=== PATIENT | female | born 1995 | race Caucasian/White ===

== ENCOUNTER 2017-02-15 15:02 | Observation (INO) ==
--- NOTE | 2017-02-15 16:20 | OB/GYN Progress Note ---
Date of Encounter: 02/15/17 Time of Encounter: 16:18 - Assessment and Plan (1) 39 weeks gestation of Current Visit: Yes Status: Acute (2) Vaginal bleeding Current Visit: Yes Status: Acute Pt with no active red bleeding at this time. only dark brown spotting when wiping at this time. Dr. Mckeon will be in to evaluate. (3) NST (non-stress test) reactive Current Visit: Yes Status: Acute Baseline 135 Subjective - Subjective Interval history: here for increased vaginal bleeding after cervical exam in office. Pt reports good movement, denies leaking of fluid. Pt states just went to restroom and had only a small amount of brown discharge on pad. Feels occasional cramping contractions, but nothing painful. Antepartum ROS: vaginal bleeding, movement normal, contractions, no loss of fluid Objective - Vital Signs Vital Signs: Intake and Output 02/15/17 02/15/17 02/15/17 07:59 15:59 23:59 Other: Weight 55.4 kg Patient Weight 02/15/17 23:59 Weight 55.4 kg - Exam FHR: auscultation normal FHR comments: Baseline 135 Auscultation: bilateral: normal Abdomen: Present: normal appearance, soft, gravid
--- NOTE | 2017-02-15 18:04 | OB/GYN Progress Note ---
Date of Encounter: 02/15/17 Time of Encounter: 17:45 - Assessment and Plan (1) First in adolescent 16 years of age or older in third trimester Current Visit: Yes Status: Acute (2) False labor after 37 completed weeks of gestation Current Visit: Yes Status: Acute Labor precautions given patient was scheduled for an induction in 1 week it has not delivered by then (3) 39 weeks gestation of Current Visit: Yes Status: Acute (4) Vaginal bleeding Current Visit: Yes Status: Acute Subjective - Subjective Interval history: Patient states feeling occasional contractions but nothing uncomfortable. She has been observed for couple hours having a brownish discharge now no active bleeding. Did have a long discussion with the patient about trying to allow her to go into labor on her own due to her inability to tolerate pelvic exams. Patient has not made any cervical change since the office and from last week. She still appears to be 3 cm. Because of her very low pain tolerance I recommendation is to let her try make some more change in her own when she is to [address] an epidural even if not really in labor so we can do pelvic exams more comfortably for her and make this more enjoyable for her. Patient is a With this would have preferred to stay in have a baby tonight but understands. Labor precautions were given to the patient. Antepartum ROS: vaginal bleeding, contractions Objective - Vital Signs Vital Signs: Intake and Output 02/15/17 02/15/17 02/15/17 07:59 15:59 23:59 Other: Weight 55.4 kg Patient Weight 02/15/17 23:59 Weight 55.4 kg - Exam FHR: category 1 FHR comments: heart tones 140s reactive contractions every 2 minutes but patient is not feeling them Auscultation: bilateral: normal Abdomen: Present: soft, gravid Uterus: Present: firm Cervical dilation: 3 Cervix effacement: 80 station: -2
== END 2017-02-15 17:36 | disposition home or self-care (01) ==
LOC: 1NENULAB
PROVIDERS: ADMIT Obstetrics & Gynecology; ATTEND Obstetrics & Gynecology

== ENCOUNTER 2017-02-22 07:59 | Inpatient (IN) ==
[2017-02-22] MEDS ORDERED: Ondansetron 4 MG/2 ML VIAL IVP PRN ×2 (08:06→13:00)
[2017-02-22] MEDS ORDERED: Famotidine 20 MG/2 ML VIAL IVP PRN (08:06)
[2017-02-22] MEDS ORDERED: Oxytocin 20 units/ LR 1000 mL 20 UNIT/1,000 ML BAG IVC SCH (08:15)
[2017-02-22 08:47] LABS: Basophils # 0.1 K/mcL (0.0-0.2); Basophils % 0.6 %; Eosinophils # 0.1 K/mcL (0.0-0.6); Eosinophils % 1.5 %; Hematocrit 33.7 % (35.3-44.9); Hemoglobin 10.6 g/dL (11.5-15.4); Immature Granulocytes % 0.7 % (0-4); Lymphocytes # 1.7 K/mcL (0.6-4.6); Mean Corpuscular HGB Conc 31.5 g/dL (31.6-35.5); Mean Corpuscular Hemoglobin 26.1 pg (28.0-33.3); Mean Platelet Volume 10.9 fL (9.4-12.4); Monocytes # 0.6 K/mcL (0.0-1.3); Monocytes % 7.8 %; Neutrophils # 5.7 K/mcL (1.6-8.9); Platelet Count 213 K/mcL (140-400); Red Blood Count 4.06 M/mcL (3.82-4.97); Red Cell Distribution Width 14.2 % (11.5-14.5); Segmented Neutrophils % 68.4 %
[2017-02-22] MEDS: Ringers Solution, Lactated 1,000 ML IVC SCH ×2 (08:58→16:35)
--- NOTE | 2017-02-22 09:00 | OB/GYN History & Physical ---
Date of Encounter: 02/22/17 Time of Encounter: 09:00 Assessment and Plan (1) 40 weeks gestation of Current visit: Yes Status: Acute Admit for induction of labor Early Epidural planned Pitocin Anticipate vaginal delivery History of Present Illness Chief complaint: Induction of Labor HPI: Ms. Crespo is a 21 year old female , 40+3, presenting to L&D for induction of labor with Dr. Mckeon. Pt reports good movement, denies loss of fluid/ bleeding/discharge. Labs: GBS- VZV pending Rubella immune Blood type: O positive Past Med Surg Social Fam HX - Past Medical History Medical history: no medical history Psychiatric history: no psych history - Past Surgical History Surgical History: no surgical history - Social History Smoking Status: Former smoker Smokeless Tobacco Status: No Alcohol use: none Drug use: marijuana - Family History Father Family Member Ethnicity: Non- Living Status: Still Living Hx Family Cardiac Disorders: Yes (HYPERTENSION) Hx Family Respiratory Disorders: No Hx Family Cancer: No Hx Family GI Disorders: No Hx Family Genitourinary Disorders: No Hx Family Endocrine Disorder: No Hx Family Musculoskeletal Disorders: No Hx Family Neuromuscular Disorders: No Hx Family Neurologic Disorders: No Hx Family HEENT Disorders: No Hx Family Autoimmune Disorders: No Hx Family Reproductive Disorders: No Hx Family Psychosocial Disorders: No Hx Family Medical Disorders: No Obstetrical History - Pregnancies : 1 Medications and Allergies Multi Tablet 1 tab PO DAILY 02/15/17 [History] Zantac 1 tab PO BID 02/15/17 [History] 3 Allergy/AdvReac Type Severity Reaction Status Date / Time Penicillins Allergy See Verified 02/22/17 08:27 Comments Review of System OB - Constitutional Constitutional ROS IM: no fatigue - Cardiovascular Cardiovascular: no chest pain - Respiratory Respiratory: no dyspnea - Gastrointestinal Gastrointestinal: no abdominal pain - Neurological Nerological: no abnormal movements Exam - Constitutional Constitutional: well developed, well nourished, no acute distress, average body habitus - HEENT HEENT: EOMI, PERRL, Normocephaly - Neck Neck exam: full ROM - Lungs Respiratory exam: CTAB - Cardiovascular Cardiovascular exam: +S1, +S2 - Abdomen Abdomen: Present: bowel sounds normal - Cervix Dilation: 4 Effacement: 80 Station: 0 Results Result Diagrams: 02/22/17 08:37 Abnormal lab results Hgb 10.6 g/dL (11.5-15.4) L 02/22/17 08:37 Hct 33.7 % (35.3-44.9) L 02/22/17 08:37 MCH 26.1 pg (28.0-33.3) L 02/22/17 08:37 MCHC 31.5 g/dL (31.6-35.5) L 02/22/17 08:37 All other labs normal. - VTE Reasons for not Prescribing Prophylaxis: Treatment not Indicated - Low risk for VTE
--- NOTE | 2017-02-22 10:30 | Anesthesia Evaluation PreOp ---
Date of Encounter: 02/22/17 Time of Encounter: 10:16 - Past History Planned Operation: JENNYFER Cardiac History: Denies any Significant Hx Pulmonary History: Denies Any Significant HX RESPIRATORY SERVICES MANAGER History: Denies Any Significant HX Other Medical History: GERD Anesthesia History: Past Anesthesia (wisdom teeth extraction) : Yes Alcohol Use: none Drug use: marijuana Medications and Allergies Multi Tablet 1 tab PO DAILY 02/15/17 [History] Zantac 1 tab PO BID 02/15/17 [History] 3 Allergy/AdvReac Type Severity Reaction Status Date / Time Penicillins Allergy See Verified 02/22/17 08:27 Comments - Meds/Allergy Pre-op Review Medications Reviewed: Yes Allergies Reviewed: Yes Beta Blockers on Current Med List: No Anesthesia Results - Labs 02/22/17 08:37 Anesthesia Exam BP 107/70 P 70 R 18 T 36.8 Height: 5'4" Weight: 55.7kg NPO (# of Hours): 4 Pain Scale: 2 Pain Scale Used: Numeric (1 - 10) - HEENT Pupil (Motor): Pupils equal Mallampati: II Teeth: Normal Oral Opening: Greater than 3 - RESPIRATORY SERVICES MANAGER LOC: Oriented RESPIRATORY SERVICES MANAGER Motor: Normal RUE, Normal LUE, Normal RLE, Normal LLE, Normal Face RESPIRATORY SERVICES MANAGER Sensory: Normal: RUE, LUE, RLE, LLE, Face - Cardiac Rhythm: Regular Murmur: None JVD: No Carotid Bruit: No - Pulmonary Breath Sounds: bilateral Clear Respiratory Effort: Symmetrical Anesthesia Assess/Plan ASA Score: 2 Modified [place] Scale for Level of Consciousness: Cooperative, oriented, and tranquil Anesthetic Plan: Regional Autologous Blood: No Monitoring Plan: Standard Monitors Recovery Plan: PACU
[2017-02-22] MEDS ORDERED: *HR* FentaNYL (PF) 100 MCG/2 ML VIAL ONE (12:19)
[2017-02-22] MEDS ORDERED: Bupivacaine-MPF 0.25% 10 ML VIAL ONE (12:20)
[2017-02-22] MEDS ORDERED: Epidural Premix (fent/bupiv) 110 ML EP ONE ×2 (12:20→19:36)
[2017-02-22] MEDS ORDERED: Bupivacaine-MPF 0.25% 10 ML VIAL EP ONE (13:00)
[2017-02-22] MEDS ORDERED: *HR* FentaNYL (PF) 100 MCG/2 ML VIAL EP ONE (13:00)
[2017-02-22] MEDS ORDERED: EPHEDrine 50 MG/ML VIAL IVP PRN (13:00)
[2017-02-22] MEDS ORDERED: Epidural Premix (fent/bupiv) 110 ML EP SCH (13:00)
--- NOTE | 2017-02-22 13:05 | Anesthesia Procedures ---
Date of Encounter: 02/22/17 Time of Encounter: 12:22 Procedures: Anesthesia - Epidural/Spinal Patient ID/Chart reviewed: Yes Patient examined: Yes OB Eval: Gestational age: 40 OB Eval: : 1 OB Eval: Hx Para: 0 OB Eval: Dilated at (cm): 4 OB Eval: Contractions: Non-stressed pattern Consent Obtained: Yes Supplemental Oxygen: None/Room Air Site Prep: Aseptic Technique, Sterile prep and drape, Povidone-Iodine 1% Patient position: upright Local Anesthetic: Lidocaine 1% Amount of Local Anesthetic used: 3 Touhy Needle Gauge: 18 Catheter Depth at Skin (cm): 5 Test Dose (1.5% Lido + Epi): Volume given (mls): 3 Test Dose Result: Negative Loading Dose: 0.25% Marcaine (mls): 10 Loading Dose: Fentanyl (mcg): 100 Loading Dose Administered: Thru Catheter Infusion Med: 0.125% Bupivacaine w/ 2 mcg/ml Fentanyl Infusion Rate (mls/hr): [address]: Tegaderm, Tape Interspace Used: L4-L5 Loss of Resistance (APOLLO): Yes Blood: No CSF: No Paresthesia: No Procedure: JENNYFER placed 1st pass without any immediate noted complications. VSS and FHT stable throughout. Vitals + FHT's: 1222 BP 126/77 P 58 R 18 1255 BP 132/69 P 62 R 16 FHT 140s
--- NOTE | 2017-02-22 13:20 | OB Labor Progress Note ---
Date of Encounter: 02/22/17 Time of Encounter: 13:15 Labor Progress Note - Subjective Subjective: Patient comfortable after epidural no longer feeling any discomfort. - Cervix Cervix: 4/90/0 AROM CLEAR - Heart Tones Heart Tones: heart tones 140s reactive - Nettleton Nettleton: Contractions every 2 minutes IUPC placed - Plan Plan: Continue current care and anticipate normal spontaneous vaginal delivery
[2017-02-22] MEDS ORDERED: Lidocaine 1% 20 ML MDV ONE (19:36)
--- NOTE | 2017-02-22 23:38 | OB/GYN Procedure Note ---
Delivery - Delivery Date: 02/22/17 Provider: Alejandro Mckeon Intrapartum events: none Delivery induction: AROM, oxytocin Delivery augmentation: rupture of membranes Delivery monitor: external FHT, external uterine, internal uterine Anesthesia: epidural Estimated Blood Loss: 200 - (s) Infant A Infant Delivery Date: 02/22/17 Delivery Time: 22:41 Presentation: vertex Position: GERMAN Route of delivery: Gender: Female Viability: Viable Pounds: 7 Ounces: 0 Weight Gram: 3.18 kg at 1 minute: 2 Shoulder Dystocia: not encountered Specimens collected: cord blood, venous cord gases, arterial cord gases Placenta: spontaneous Cord: nuchal cord, 3 umbilical vessels, nuchal reduced - Repair Episiotomy: none Laceration Description: Perineal - 2nd Degree, Vaginal (bilateral sulcus tears) - Complications Delivery complications: none Delivery comments: Patient is a 21-year-old 1 para 0 at 40-3/7 weeks who presents to labor and delivery for an induction of labor secondary to term with favorable cervix. Patient was 4 cm on admission she was started on Pitocin and epidural was placed early due to inability to tolerate pelvic exams. Patient progressed appropriately and became complete but had no desire to push did not feel anything. We had the patient labored down for couple hours and had the patient push. She pushed for 1 hour with minimal change allowed her to labor down for an additional hour and then continued to push for next her 2-1/2 hours. The head crowned up nicely and patient delivered a viable female infant in left occiput anterior presentation at 2241. Infant was bulb suctioned on the abdomen minimal to no respiratory effort was encountered and she was immediately taken over to the Isolette. Apgars were 2 at 1 minute, 6 at 5 minutes, 9 at 10 minutes. Cord gases were obtained prior to collecting cord blood. infant weight was 7 lbs. 2 oz. placenta was then delivered spontaneously with a three-vessel cord, us customs and border officer Dr. Mckeon, anesthesia epidural, estimated blood loss 200 mL. Patient was noted to have an intact perineum however she had what appeared to be a second to third degree laceration within the vagina which it extended down to the rectum. Rectus muscles were intact after rectal exam had been performed. No mucosal disruption was noted either. The. The bulbocavernosus was anythingdisrupted internally but there was no tear externally. She was noted also to have bilateral sulcus tears gone up to and left side. These were repaired with 3-0 Vicryl in a running locking stitch the bulbocavernosus was brought together in the midline by interrupted sutures and the remaining vaginal mucosa was closed over the surface. Patient's hymenal ring on the left had become detached we were unable to reattach this and is just trimmed up there was no active bleeding and it was left alone. She had multiple abrasions that were not bleeding no attempt was made to try and repair these. Good hemostasis is noted procedure was terminated. All needles lap sponge counts were correct 3 patient tolerated the delivery well. was taken to the nursery for observation. - Disposition Mom disposition: stable in LDR disposition: stable in LDR
[2017-02-23] MEDS ORDERED: Oxytocin 20 units/ LR 1000 mL 20 UNIT/1,000 ML BAG IVC SCH (00:11)
[2017-02-23] MEDS ORDERED: Measles/Mumps/Rubella Vacc 0.5 ML VIAL SQ PRN (00:11)
[2017-02-23] MEDS ORDERED: Acetaminophen 325 MG TABLET PO PRN (00:11)
[2017-02-23] MEDS: Ibuprofen 600 MG TABLET PO PRN ×3 (00:30→19:50)
[2017-02-23] MEDS: *HR* HYDROcodone/Acet 5/325 mg TABLET PO PRN ×3 (03:07→23:54)
[2017-02-23] MEDS: Prenatal Vit/FA 1 EACH TABLET PO SCH (07:28)
[2017-02-23] MEDS: Famotidine 20 MG TABLET PO SCH ×2 (07:28→19:50)
[2017-02-23 07:45] LABS: Hematocrit 29.6 % (35.3-44.9); Hemoglobin 9.4 g/dL (11.5-15.4); Mean Corpuscular HGB Conc 31.8 g/dL (31.6-35.5); Mean Corpuscular Hemoglobin 26.5 pg (28.0-33.3); Mean Corpuscular Volume 83.4 fL (83.0-100.0); Mean Platelet Volume 11.6 fL (9.4-12.4); Platelet Count 180 K/mcL (140-400); Red Blood Count 3.55 M/mcL (3.82-4.97); Red Cell Distribution Width 14.4 % (11.5-14.5)
[2017-02-23] MEDS ORDERED: Benzocaine/Menthol 56 GM AEROSOL SPRAY TP PRN (08:21)
--- NOTE | 2017-02-23 08:31 | OB/GYN Progress Note ---
Date of Encounter: 02/23/17 Time of Encounter: 08:28 - Assessment and Plan (1) Vaginal delivery Current Visit: Yes Status: Acute Pt meeting day 1 milestones. Possible discharge home tomorrow. (2) Second degree perineal laceration during delivery Current Visit: Yes Status: Acute Routine perineal care. Ice pack to perineum. Encouraged sitz bath to perineum prn. Dermoplast ordered. Subjective - Subjective Principal diagnosis: day 1 vaginal delivery Interval history: Pt doing well. Reports pain is controlled, light lochia. Discussed interventions such as sitz bath and Dermoplast for perineal pain. Patient reports: appetite normal, voiding normally (Having some difficulty urinating due to swelling) : doing well Objective - Latest Vital Signs Latest vital signs: Vital Signs Temp Pulse Pulse Resp BP Pulse Ox 02/23/17 04:45 98.5 F 67 14 124/79 97 02/23/17 03:40 97.9 F 66 16 118/74 97 02/23/17 03:35 97.9 F 66 16 118/74 97 02/23/17 02:30 98.1 F 77 80 16 121/79 98 Intake and Output 02/22/17 02/23/17 02/23/17 23:59 07:59 15:59 Intake Total 1000 / 1000 Output Total 660 / 660 Balance 1000 / 1000 -660 / -660 Intake: IV Fluids 1000 / 1000 Lactated Ringers 1,000 ML 1000 / 1000 @ 125 mls/hr IVC .Q8H DANTE Rx#:[id number] Output: Urine 660 / 660 Other: # Voids 1 Weight 56 kg Patient Weight 02/23/17 23:59 Weight 56 kg - Exam Lungs: bilateral: normal Chest: Normal S1, Normal S2 Extremities: Present: normal Abdomen: Present: normal appearance Uterus: Present: firm Uterus Position: 1 Finger Below Umbilicus, Midline - Labs Labs: Laboratory Results - last 24 hr 02/22/17 02/22/17 02/23/17 08:37 08:37 07:15 WBC 8.3 26.0 H D RBC 4.06 3.55 L Hgb 10.6 L 9.4 L Hct 33.7 L 29.6 L MCV 83.0 83.4 MCH 26.1 L 26.5 L MCHC 31.5 L 31.8 RDW 14.2 14.4 Plt Count 213 180 MPV 10.9 11.6 Immature Gran % 0.7 Seg Neutrophils % 68.4 Lymphocytes % 21.0 Monocytes % 7.8 Eosinophils % 1.5 Basophils % 0.6 Neutrophils # 5.7 Lymphocytes # 1.7 Monocytes # 0.6 Eosinophils # 0.1 Basophils # 0.1 VZV IgG Antibody Positive
[2017-02-23] MEDS ORDERED: PRENATAL MULTI PO SCH (09:00)
[2017-02-23 09:24] LABS: Anisocytosis 1+ (Not Present); Lymphocytes # 0.5 K/mcL (0.6-4.6); Neutrophils # 25.5 K/mcL (1.6-8.9); Platelet Estimate Normal (Normal)
[2017-02-24] MEDS: Ibuprofen 600 MG TABLET PO PRN ×2 (04:13→09:41)
[2017-02-24 08:08] VITALS: BP 115/74
[2017-02-24] MEDS: Prenatal Vit/FA 1 EACH TABLET PO SCH (09:41)
[2017-02-24] MEDS: Famotidine 20 MG TABLET PO SCH (09:42)
--- NOTE | 2017-02-24 13:08 | Discharge Summary ---
Date of Encounter: 02/24/17 Time of Encounter: 13:06 - Discharge Diagnosis (1) Vaginal delivery Priority: Primary Status: Acute Comments: Pt meeting all milestones. Edema in perineum decreasing, tearful over in NICU, , desires discharge (2) anemia Priority: Secondary Status: Acute Comments: Will DC on iron supplement - Discharge Medications Prescriptions: Ibuprofen [Motrin] 600 mg PO Q6HR PRN #60 tab PRN Reason: Cramping Breast Pump [BREAST PUMP] 1 each .ROUTE AD #1 each Docusate [Colace] 100 mg PO BID #60 Ferrous Sulfate 325 mg PO DAILY #60 tab Home Medications: Multi Tablet 1 tab PO DAILY 02/15/17 [History] Acetaminophen [Tylenol] 650 mg PO Q6HR PRN tab 02/24/17 [Rx] Benzocaine/Menthol Barrow [Dermoplast Barrow] 1 appl TP QID PRN aerosol 02/24/17 [Rx] Breast Pump [BREAST PUMP] 1 each .ROUTE AD #1 each 02/24/17 [Rx] Docusate [Colace] 100 mg PO BID #60 02/24/17 [Rx] Famotidine [Pepcid] 20 mg PO BID tab 02/24/17 [Rx] Ferrous Sulfate 325 mg PO DAILY #60 tab 02/24/17 [Rx] Ibuprofen [Motrin] 600 mg PO Q6HR PRN #60 tab 02/24/17 [Rx] Vit/FA 1 each PO DAILY tab 02/24/17 [Rx] Allergies/Adverse Reactions: 3 Allergy/AdvReac Type Severity Reaction Status Date / Time Penicillins Allergy See Verified 02/22/17 08:27 Comments Data Procedures and tests throughout hospitalization: Laboratory Tests 02/22/17 02/22/17 02/23/17 08:37 08:37 07:15 WBC 8.3 26.0 H D RBC 4.06 3.55 L Hgb 10.6 L 9.4 L Hct 33.7 L 29.6 L MCV 83.0 83.4 MCH 26.1 L 26.5 L MCHC 31.5 L 31.8 RDW 14.2 14.4 Plt Count 213 180 MPV 10.9 11.6 Immature Gran % 0.7 Seg Neutrophils % 68.4 88.0 Band Neutrophils % 10.0 H Lymphocytes % 21.0 2.0 Monocytes % 7.8 Eosinophils % 1.5 Basophils % 0.6 Neutrophils # 5.7 25.5 H Lymphocytes # 1.7 0.5 L Monocytes # 0.6 Eosinophils # 0.1 Basophils # 0.1 Platelet Estimate Normal Anisocytosis 1+ A VZV IgG Antibody Positive Date of admission: 02/22/17 07:59 Primary care physician: PCP RENÉE Consults: 02/23/17 00:11 Consult to Moisture Machine Tender [CONS] Routine Comment: Vaginal delivery, consult needed Discharging clinician: Nayeli Locke Anticipated date of discharge: 02/24/17 - Patient Status Disposition: Home, Self-Care Condition: Good Functional capacity at discharge: independent ambulation Overall status at discharge: patient is back to baseline - Discharge Instructions Follow Up With: NONE,PCP [Primary Care Provider] - Hospital Course Episiotomy: none Hospital course: Delivery - Delivery Date: 02/22/17 Provider: Alejandro Mckeon Intrapartum events: none Delivery induction: AROM, oxytocin Delivery augmentation: rupture of membranes Delivery monitor: external FHT, external uterine, internal uterine Anesthesia: epidural Estimated Blood Loss: 200 - (s) Infant A Infant Delivery Date: 02/22/17 Infant Delivery Time: 22:41 Presentation: vertex Position: GERMAN Route of delivery: Gender: Female Viability: Viable Pounds: 7 Ounces: 0 Weight Gram: 3.18 kg at 1 minute: 2 Shoulder Dystocia: not encountered Specimens collected: cord blood, venous cord gases, arterial cord gases Placenta: spontaneous Cord: nuchal cord, 3 umbilical vessels, nuchal reduced - Repair Episiotomy: none Laceration Description: Perineal - 2nd Degree, Vaginal (bilateral sulcus tears) - Complications Delivery complications: none Delivery comments: Patient is a 21-year-old 1 para 0 at 40-3/7 weeks who presents to labor and delivery for an induction of labor secondary to term with favorable cervix. Patient was 4 cm on admission she was started on Pitocin and epidural was placed early due to inability to tolerate pelvic exams. Patient progressed appropriately and became complete but had no desire to push did not feel anything. We had the patient labored down for couple hours and had the patient push. She pushed for 1 hour with minimal change allowed her to labor down for an additional hour and then continued to push for next her 2-/2 hours. The head crowned up nicely and patient delivered a viable female in left occiput anterior presentation at 2241. was bulb suctioned on the abdomen minimal to no respiratory effort was encountered and she was immediately taken over to the Isolette. Apgars were 2 at 1 minute, 6 at 5 minutes, 9 at 10 minutes. Cord gases were obtained prior to collecting cord blood. weight was 7 lbs. 2 oz. placenta was then delivered spontaneously with a three-vessel cord, estate administrator Dr. Mckeon, anesthesia epidural, estimated blood loss 200 mL. Patient was noted to have an intact perineum however she had what appeared to be a second to third degree laceration within the vagina which it extended down to the rectum. Rectus muscles were intact after rectal exam had been performed. No mucosal disruption was noted either. The. The bulbocavernosus was anythingdisrupted internally but there was no tear externally. She was noted also to have bilateral sulcus tears gone up to and left side. These were repaired with 3-0 Vicryl in a running locking stitch the bulbocavernosus was brought together in the midline by interrupted sutures and the remaining vaginal mucosa was closed over the surface. Patient's hymenal ring on the left had become detached we were unable to reattach this and is just trimmed up there was no active bleeding and it was left alone. She had multiple abrasions that were not bleeding no attempt was made to try and repair these. Good hemostasis is noted procedure was terminated. All needles lap sponge counts were correct 3 patient tolerated the delivery well. was taken to the nursery for observation. - Disposition Mom disposition: stable in PP and appropriate for discharge Time Attestation: Total time spent providing and/or coordinating discharge services: Exam - Constitutional Vitals: Temp Pulse Resp BP Pulse Ox 97.6 F 56 12 115/74 99 02/24/17 08:07 02/24/17 08:07 02/24/17 08:07 02/24/17 08:07 02/24/17 08:07 General appearance IM: A&O X 3, pleasant, no acute distress - Respiratory Respiratory exam: Present: CTAB - Cardiovascular Cardiovascular exam IM: Present: RRR - GI/Abdominal GI/Abdominal exam IM: normal bowel sounds, soft - Uterine Tone: Firm Uterus Position: 2 Fingers Below Umbilicus - Extremities Exam Extremities exam IM: Present: normal capillary refill, normal inspection - Neurological Exam Neurological exam: normal gait - Psychiatric Additional comments: Tearful when discussing infant admission to NICU, overal good mood per pt. - Other Additional findings: Perineum continues to have edema. Pt states is less than yesterday, no hematoma noted.
== END 2017-02-24 13:00 | disposition home or self-care (01) | DRG 775 ==
LOC: 1NENULAB 07:59 → 1NENUOBS 02-23 01:16
PROVIDERS: ADMIT Obstetrics & Gynecology; ATTEND Obstetrics & Gynecology

== ENCOUNTER 2019-01-23 08:00 | Inpatient (IN) ==
[2019-01-23] MEDS ORDERED: Ondansetron 4 MG/2 ML VIAL IVP PRN (08:47)
[2019-01-23] MEDS ORDERED: *HR* Nalbuphine 10 MG/ML AMPUL IVP PRN (08:47)
[2019-01-23] MEDS ORDERED: Lidocaine 1% 20 ML MDV INFILT PRN (08:47)
[2019-01-23] MEDS ORDERED: Metoclopramide 10 MG/2 ML VIAL IVP PRN (08:47)
[2019-01-23] MEDS ORDERED: Naloxone 0.4 MG/ML INJ IVP PRN (08:47)
[2019-01-23] MEDS ORDERED: Famotidine 20 MG/2 ML VIAL IVP PRN (08:47)
[2019-01-23] MEDS ORDERED: miSOPROStol 25 MCG TABLET PO PRN (08:50)
--- NOTE | 2019-01-23 08:54 | OB/GYN History & Physical ---
Date of Encounter: 01/23/19 Time of Encounter: 08:52 Assessment and Plan (1) and not yet delivered in third trimester Current visit: Yes Status: Acute (2) Asymmetric IUGR affecting , antepartum Current visit: Yes Status: Acute Patient be induced with Cytotec 50 g by mouth once she is having contractions we will get her an epidural we will then artificially ruptured her if she does not spontaneously rupture and plan is to anticipate vaginal delivery (3) 39 weeks gestation of Current visit: No Status: Acute History of Present Illness HPI: Ms. Crespo is a 23 year old female 2 para 1 at 39-0/7 weeks who presented to labor and delivery for induction of labor secondary to with favorable cervix. Patient has been followed closely recently for a asymmetrical IUGR NSTs have been reassuring amniotic fluid index has been normal. It is recommended when she got to 39 weeks she would be induced. Patient was noted to be 3 cm in the office recommended Cytotec induction. She states she feels the occasional contraction but nothing that she can time no leaking of fluid no vaginal bleeding. Patient's care has been unremarkable other than she was diagnosed with influenza earlier in the and was given Tamiflu. Patient is GBS negative, rubella positive, Varicella positive, O+ Past Med Surg Social Fam HX - Past Medical History Source: patient, old records reviewed Medical history: no medical history Psychiatric history: no psych history - Past Surgical History Surgical History: no surgical history Additional surgical history: wisdom teeth - Social History Smoking Status: Former smoker Smokeless Tobacco Status: No Alcohol use: none Drug use: marijuana (past) Occupational status: employed Current living situation: Home - Independent Activity Level: Independent ambulation Recent Out of Country Travel Within the Last 8 Weeks: No Exposure or Possible Exposure to Illness During Travel: No - Family History Father Family Member Ethnicity: Non- Living Status: Still Living Hx Family Cardiac Disorders: Yes (HYPERTENSION) Hx Family Respiratory Disorders: No Hx Family Cancer: No Hx Family GI Disorders: No Hx Family Endocrine Disorder: No Hx Family Neuromuscular Disorders: No Hx Family Neurologic Disorders: No Hx Family HEENT Disorders: No Hx Family Autoimmune Disorders: No - Additional Family History Additional family history: Family history noncontributory at this time Obstetrical History - Pregnancies : 2 Para: 1 Livin Medications and Allergies Multi Tablet 1 tab PO DAILY 02/15/17 [History] Acetaminophen [Tylenol] 650 mg PO Q6HR PRN tab 02/24/17 [Rx] Benzocaine/Menthol [place] [Dermoplast [place]] 1 appl TP QID PRN aerosol 02/24/17 [Rx] Breast Pump [BREAST PUMP] 1 each .ROUTE AD #1 each 02/24/17 [Rx] Docusate [Colace] 100 mg PO BID #60 02/24/17 [Rx] Famotidine [Pepcid] 20 mg PO BID tab 02/24/17 [Rx] Ferrous Sulfate 325 mg PO DAILY #60 tab 02/24/17 [Rx] Ibuprofen [Motrin] 600 mg PO Q6HR PRN #60 tab 02/24/17 [Rx] Vit/FA 1 each PO DAILY tab 02/24/17 [Rx] Allergy/AdvReac Type Severity Reaction Status Date / Time Penicillins Allergy See Verified 01/18/19 10:02 Comments Review of System OB All systems PM: reviewed and no additional remarkable complaints except as stated Exam - Constitutional Constitutional: well developed, well nourished, no acute distress - HEENT HEENT: EOMI, PERRL, Mucus Membranes Moist - Neck Neck exam: full ROM - Lungs Respiratory exam: CTAB - Cardiovascular Cardiovascular exam: RRR - Abdomen Abdomen: Present: bowel sounds normal, gravid ( heart tones 140s reactive contractions every 2-3 minutes irregular not feeling them) - Vagina Vagina: Present: normal moisture - Cervix Dilation: 4 Effacement: 80 Station: -1 Results All other labs normal. - VTE Reasons for not Prescribing Prophylaxis: Treatment not Indicated - Low risk for VTE
[2019-01-23] MEDS ORDERED: Ringers Solution, Lactated 1,000 ML IVC SCH (09:00)
[2019-01-23 09:19] LABS: Basophils % 0.5 %; Eosinophils # 0.1 K/mcL (0.0-0.6); Eosinophils % 1.2 %; Hemoglobin 12.2 g/dL (11.5-15.4); Immature Granulocytes % 0.4 % (0-4); Lymphocytes # 1.5 K/mcL (0.6-4.6); Lymphocytes % 19.1 %; Mean Corpuscular HGB Conc 32.1 g/dL (31.6-35.5); Mean Corpuscular Hemoglobin 28.3 pg (28.0-33.3); Mean Corpuscular Volume 88.2 fL (83.0-100.0); Mean Platelet Volume 10.3 fL (9.4-12.4); Monocytes # 0.4 K/mcL (0.0-1.3); Monocytes % 5.6 %; Neutrophils # 5.6 K/mcL (1.6-8.9); Platelet Count 197 K/mcL (140-400); Red Blood Count 4.31 M/mcL (3.82-4.97); Red Cell Distribution Width 14.2 % (11.5-14.5); Segmented Neutrophils % 73.2 %; White Blood Count 7.7 K/mcL (4.3-11.1)
[2019-01-23 10:12] LABS: Amphetamine Screen,Urine Negative ng/mL (Cutoff=1000); Barbiturate Screen,Urine Negative ng/mL (Cutoff=200); Benzodiazepines Screen,Urine Negative ng/mL (Cutoff=200); Cannabinoid Screen,Urine Negative ng/mL (Cutoff = 50); Cocaine Screen,Urine Negative ng/mL (Cutoff= 300); Opiate Screen,Urine Negative ng/mL (Cutoff=300); Phencyclidine Screen,Urine Negative ng/mL (Cutoff=25)
[2019-01-23] MEDS ORDERED: Epidural Premix (fent/bupiv) 110 ML EP SCH (11:30)
--- NOTE | 2019-01-23 12:37 | Anesthesia Evaluation PreOp ---
Date of Encounter: 01/23/19 Time of Encounter: 11:30 - Past History Planned Operation: hali Cardiac History: Denies any Significant Hx Pulmonary History: Denies Any Significant HX [employer] History: Denies Any Significant HX Other Medical History: Denies Any Significant HX Anesthesia History: No Prior Anesthetic Complications : Yes Test: Positive Alcohol Use: none Drug use: none Medications and Allergies Multi Tablet 1 tab PO DAILY 02/15/17 [History] Acetaminophen [Tylenol] 650 mg PO Q6HR PRN tab 02/24/17 [Rx] Benzocaine/Menthol [place] [Dermoplast [place]] 1 appl TP QID PRN aerosol 02/24/17 [Rx] Breast Pump [BREAST PUMP] 1 each .ROUTE AD #1 each 02/24/17 [Rx] Docusate [Colace] 100 mg PO BID #60 02/24/17 [Rx] Famotidine [Pepcid] 20 mg PO BID tab 02/24/17 [Rx] Ferrous Sulfate 325 mg PO DAILY #60 tab 02/24/17 [Rx] Ibuprofen [Motrin] 600 mg PO Q6HR PRN #60 tab 02/24/17 [Rx] Vit/FA 1 each PO DAILY tab 02/24/17 [Rx] Allergy/AdvReac Type Severity Reaction Status Date / Time Penicillins Allergy See Verified 01/18/19 10:02 Comments - Meds/Allergy Pre-op Review Medications Reviewed: Yes Allergies Reviewed: Yes Beta Blockers on Current Med List: No Anesthesia Results - Labs 01/23/19 08:47 Anesthesia Exam - HEENT Pupil (Motor): Pupils equal Mallampati: II Oral Opening: Greater than 3 - [employer] LOC: Oriented [employer] Motor: Normal RUE, Normal LUE, Normal RLE, Normal LLE, Normal Face [employer] Sensory: Normal: RUE, LUE, RLE, LLE, Face - Cardiac Rhythm: Regular Murmur: None JVD: No Carotid Bruit: No - Pulmonary Breath Sounds: bilateral Clear Respiratory Effort: Symmetrical Anesthesia Assess/Plan ASA Score: 1 Level of consciousness: Cooperative Anesthetic Plan: MAC, Epidural
[2019-01-23] MEDS ORDERED: 0.9 % Sodium Chloride 1,000 ML ONE (12:40)
--- NOTE | 2019-01-23 12:40 | Anesthesia Procedures ---
Date of Encounter: 01/23/19 Time of Encounter: 11:30 Procedures: Anesthesia - Epidural/Spinal Patient ID/Chart reviewed: Yes Patient examined: Yes OB Eval: Gestational age: 39 OB Eval: : 2 OB Eval: Hx Para: 1 OB Eval: Dilated at (cm): 4 OB Eval: Contractions: Non-stressed pattern Consent Obtained: Yes Site Prep: Aseptic Technique, Sterile prep and drape, Povidone-Iodine 1% Patient position: upright Amount of Local Anesthetic used: 3 Touhy Needle Gauge: 18 Touhy Needle Depth (cm): 6 Catheter Depth at Skin (cm): 8 Test Dose (1.5% Lido + Epi): Volume given (mls): 3 Test Dose Result: Negative Infusion Rate (mls/hr): [address]: Tegaderm, Tape Interspace Used: L4-L5 Loss of Resistance (APOLLO): Yes Blood: No CSF: No Paresthesia: No Vitals + FHT's: stable throughout see nursing notes
--- NOTE | 2019-01-23 12:40 | OB Labor Progress Note ---
Date of Encounter: 01/23/19 Time of Encounter: 12:38 Labor Progress Note - Subjective Subjective: patient comfortable after her epidural - Cervix Cervix: 5/80/0 AROM thick meconium noted - Heart Tones Heart Tones: FHT's 140's reactive - [place]: IUPC placed contractions every 2 min - Interventions Interventions: we will start a amnioinfusion 1000cc 0.9 NS 300cc bolus then 60cc/HR. plan is to anticipate
[2019-01-23] MEDS ORDERED: Ropivacaine /PF 1% 100 MG/10 ML VIAL ONE (13:26)
[2019-01-23] MEDS ORDERED: Oxytocin 20 units/ LR 1000 mL 20 UNIT/1,000 ML BAG IVC ONE (14:39)
[2019-01-23] MEDS ORDERED: EPHEDrine 50 MG/ML VIAL ONE (14:59)
[2019-01-23] MEDS ORDERED: Oxytocin 20 units/ LR 1000 mL 20 UNIT/1,000 ML BAG IVC SCH ×2 (18:30→20:07)
--- NOTE | 2019-01-23 19:08 | OB/GYN Procedure Note ---
Delivery - Delivery Date: 01/23/19 Provider: Alejandro Mckeon Intrapartum events: meconium (thick) Delivery induction: sadler, misoprostol Delivery augmentation: rupture of membranes, pitocin Delivery monitor: external FHT, external uterine, internal uterine Anesthesia: epidural Quantitated Blood Loss: 100 - Infant (s) Infant A Delivery Date: 01/23/19 Infant Delivery Time: 18:45 Presentation: vertex Position: GERMAN Route of delivery: Gender: Female Viability: Viable Pounds: 5 Ounces: 13 Weight Gram: 2.65 kg at 1 minute: 9 at 5 mins: 9 Shoulder Dystocia: not encountered Specimens collected: cord blood Placenta: spontaneous Cord: 3 umbilical vessels - Repair Episiotomy: none Laceration Description: Perineal - 2nd Degree - Complications Delivery complications: none Delivery comments: Patient is a 23-year-old 2 para 1 at 39-0/7 weeks' was brought in for induction of labor secondary to term . Cervix and ultrasound showing asymmetrical IUGR. Patient been followed closely due to the baby being at approximately the 15 percentile for growth but most of the measurements were less than the 10th percentile. Patient's anesthesia been reactive did advise wants at 39 weeks we will go ahead and deliver her patient was 3 cm in the office on admission she was 4 cm patient was given Cytotec by mouth that was placed when she was feeling the contractions and she was artificially ruptured with thick meconium noted. An internal pressure catheter was placed and amnioinfusion was started. Patient progressed rapidly to completion however she had no urge to push patient was allowed to labor down for approximately 2-3 hours and with intermittent pushing patient was able to deliver a viable female in left occiput anterior presentation at 1845. There was no nuchal cord, no meconium, and the was bulb suctioned on the abdomen. Apgars were 9 at 1 minute, 9 at 5 minutes, infant weight was 5 lbs. 13 oz. Placenta was deliver ed spontaneously 3 vessel cord, [facility] at [facility], anesthesia epidural, estimated blood loss 100 mL. Patient did have a second-degree perineal laceration repaired with 3-0 Monocryl and 3-0 Vicryl in usual fashion. Cervix and vagina was visualized intact. Patient tolerated delivery well she will be observed 2 hours before being taken to the floor - Disposition Mom disposition: stable in LDR disposition: stable in LDR
[2019-01-23] MEDS ORDERED: Ibuprofen 600 MG TABLET PO ONE (19:30)
[2019-01-23] MEDS: Acetaminophen 325 MG TABLET PO PRN (23:10)
[2019-01-24] MEDS ORDERED: Ibuprofen 600 MG TABLET PO PRN (02:00)
[2019-01-24] MEDS: Ibuprofen 600 MG TABLET PO PRN ×2 (03:25→12:56)
[2019-01-24] MEDS ORDERED: Benzocaine/Menthol 56 GM AEROSOL SPRAY TP ONE (08:14)
[2019-01-24] MEDS ORDERED: Benzocaine/Menthol 56 GM AEROSOL SPRAY TP PRN (08:16)
[2019-01-24] MEDS: Acetaminophen 325 MG TABLET PO PRN ×2 (08:18→16:23)
[2019-01-24] MEDS ORDERED: Prenatal Vit/FA 1 EACH TABLET PO SCH (09:00)
[2019-01-24 10:29] LABS: Basophils % 0.2 %; Eosinophils # 0.1 K/mcL (0.0-0.6); Eosinophils % 0.4 %; Hematocrit 32.8 % (35.3-44.9); Immature Granulocytes % 0.5 % (0-4); Lymphocytes # 1.3 K/mcL (0.6-4.6); Mean Corpuscular HGB Conc 32.3 g/dL (31.6-35.5); Mean Corpuscular Hemoglobin 28.2 pg (28.0-33.3); Mean Corpuscular Volume 87.2 fL (83.0-100.0); Mean Platelet Volume 10.8 fL (9.4-12.4); Monocytes # 0.7 K/mcL (0.0-1.3); Monocytes % 5.8 %; Platelet Count 188 K/mcL (140-400); Red Blood Count 3.76 M/mcL (3.82-4.97); Red Cell Distribution Width 14.3 % (11.5-14.5); Segmented Neutrophils % 82.1 %
[2019-01-24 10:32] LABS: Hemoglobin 10.6 g/dL (11.5-15.4); Neutrophils # 9.9 K/mcL (1.6-8.9); White Blood Count 12.1 K/mcL (4.3-11.1)
--- NOTE | 2019-01-24 11:50 | Discharge Summary ---
Date of Encounter: 01/24/19 Time of Encounter: 11:48 - Discharge Diagnosis (1) Vaginal delivery Priority: Primary Status: Acute Comments: stable, meeting all PP milestones, pain well managed, tolerates po, breast feeding, desires discharge - Discharge Medications Prescriptions: New Ferrous Sulfate 325 mg PO DAILY #30 tablet Acetaminophen [Tylenol] 650 mg PO Q6HR PRN tablet PRN Reason: Mild Pain Ibuprofen [Motrin] 600 mg PO Q6H PRN #60 tablet PRN Reason: cramping Benzocaine/Menthol [place] [Dermoplast [place]] 1 appl TP QID PRN aerosol PRN Reason: See Comments Docusate [Colace] 100 mg PO BID #30 capsule Continued Multi Tablet 1 tab PO DAILY Ferrous Sulfate 325 mg PO DAILY #60 tab Acetaminophen [Tylenol] 650 mg PO Q6HR PRN tab PRN Reason: Mild Pain Ibuprofen [Motrin] 600 mg PO Q6HR PRN #60 tab PRN Reason: Cramping Benzocaine/Menthol [place] [Dermoplast [place]] 1 appl TP QID PRN aerosol PRN Reason: See Comments Docusate [Colace] 100 mg PO BID #60 Famotidine [Pepcid] 20 mg PO BID tab Vit/FA 1 each PO DAILY tab No Action Breast Pump [BREAST PUMP] 1 each .ROUTE AD #1 each Home Medications: Multi Tablet 1 tab PO DAILY 02/15/17 [History] Acetaminophen [Tylenol] 650 mg PO Q6HR PRN tab 02/24/17 [Rx] Benzocaine/Menthol [place] [Dermoplast [place]] 1 appl TP QID PRN aerosol 02/24/17 [Rx] Breast Pump [BREAST PUMP] 1 each .ROUTE AD #1 each 02/24/17 [Rx] Docusate [Colace] 100 mg PO BID #60 02/24/17 [Rx] Famotidine [Pepcid] 20 mg PO BID tab 02/24/17 [Rx] Ferrous Sulfate 325 mg PO DAILY #60 tab 02/24/17 [Rx] Ibuprofen [Motrin] 600 mg PO Q6HR PRN #60 tab 02/24/17 [Rx] Vit/FA 1 each PO DAILY tab 02/24/17 [Rx] Acetaminophen [Tylenol] 650 mg PO Q6HR PRN tablet 01/24/19 [Rx] Benzocaine/Menthol [place] [Dermoplast [place]] 1 appl TP QID PRN aerosol 01/24/19 [Rx] Docusate [Colace] 100 mg PO BID #30 capsule 01/24/19 [Rx] Ferrous Sulfate 325 mg PO DAILY #30 tablet 01/24/19 [Rx] Ibuprofen [Motrin] 600 mg PO Q6H PRN #60 tablet 01/24/19 [Rx] Allergies/Adverse Reactions: Allergy/AdvReac Type Severity Reaction Status Date / Time Penicillins Allergy See Verified 01/18/19 10:02 Comments Data Procedures and tests throughout hospitalization: Laboratory Tests 01/23/19 01/23/19 01/24/19 08:35 08:47 09:34 WBC 7.7 12.1 H D RBC 4.31 3.76 L Hgb 12.2 10.6 L D Hct 38.0 32.8 L MCV 88.2 87.2 MCH 28.3 28.2 MCHC 32.1 32.3 RDW 14.2 14.3 Plt Count 197 188 MPV 10.3 10.8 Immature Gran % 0.4 0.5 Seg Neutrophils % 73.2 82.1 Lymphocytes % 19.1 11.0 Monocytes % 5.6 5.8 Eosinophils % 1.2 0.4 Basophils % 0.5 0.2 Neutrophils # 5.6 9.9 H Lymphocytes # 1.5 1.3 Monocytes # 0.4 0.7 Eosinophils # 0.1 0.1 Basophils # 0.0 0.0 Urine Opiates Screen Negative Ur Buprenorphine Scrn Negative Ur Barbiturates Screen Negative Ur Phencyclidine Scrn Negative Ur Amphetamines Screen Negative U Benzodiazepines Scrn Negative Urine Cocaine Screen Negative U Marijuana (THC) Screen Negative Ur Drug Screen Interp See Below Labs on day of discharge: Labs from last 24 hours 01/24/19 09:34 WBC 12.1 H D RBC 3.76 L Hgb 10.6 L D Hct 32.8 L MCV 87.2 MCH 28.2 MCHC 32.3 RDW 14.3 Plt Count 188 MPV 10.8 Immature Gran % 0.5 Seg Neutrophils % 82.1 Lymphocytes % 11.0 Monocytes % 5.8 Eosinophils % 0.4 Basophils % 0.2 Neutrophils # 9.9 H Lymphocytes # 1.3 Monocytes # 0.7 Eosinophils # 0.1 Basophils # 0.0 Date of admission: 01/23/19 08:09 Primary care physician: PCP NONE Consults: 01/23/19 20:07 Consult to Germination Worker [CONS] Routine Comment: Vaginal delivery, consult needed Discharging clinician: Nayeli Locke Anticipated date of discharge: 01/24/19 - Patient Status Disposition: Home, Self-Care Condition: Good Functional capacity at discharge: independent ambulation - Discharge Instructions Follow Up With: NONE,PCP [Primary Care Provider] - Nayeli Locke, CNM [Advanced Practice Nurse] - - Diet and Activity Activity: resume usual activities as tolerated Diet: regular diet Hospital Course Reason for admission: induction of labor Delivery: Episiotomy: none Laceration: 2nd degree Other procedures: none complications: none Discharge diagnosis: IUP at term delivered [place] baby: female Hospital course: Delivery - Delivery Date: 01/23/19 Provider: Alejandro Mckeon Intrapartum events: meconium (thick) Delivery induction: sadler, misoprostol Delivery augmentation: rupture of membranes, pitocin Delivery monitor: external FHT, external uterine, internal uterine Anesthesia: epidural Quantitated Blood Loss: 100 - Infant (s) A Delivery Date: 01/23/19 Delivery Time: 18:45 Presentation: vertex Position: GERMAN Route of delivery: Gender: Female Viability: Viable Pounds: 5 Ounces: 13 Weight Gram: 2.65 kg at 1 minute: 9 at 5 mins: 9 Shoulder Dystocia: not encountered Specimens collected: cord blood Placenta: spontaneous Cord: 3 umbilical vessels - Repair Episiotomy: none Laceration Description: Perineal - 2nd Degree - Complications Delivery complications: none Delivery comments: Patient is a 23-year-old 2 para 1 at 39-0/7 weeks' was brought in for induction of labor secondary to term . Cervix and ultrasound showing asymmetrical IUGR. Patient been followed closely due to the baby being at approximately the 15 percentile for growth but most of the measurements were less than the 10th percentile. Patient's anesthesia been reactive did advise wants at 39 weeks we will go ahead and deliver her patient was 3 cm in the office on admission she was 4 cm patient was given Cytotec by mouth that was placed when she was feeling the contractions and she was artificially ruptured with thick meconium noted. An internal pressure catheter was placed and amnioinfusion was started. Patient progressed rapidly to completion however she had no urge to push patient was allowed to labor down for approximately 2-3 hours and with intermittent pushing patient was able to deliver a viable female in left occiput anterior presentation at 1845. There was no nuchal cord, no meconium, and the was bulb suctioned on the abdomen. Apgars were 9 at 1 minute, 9 at 5 minutes, infant weight was 5 lbs. 13 oz. 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 Patient did have a second-degree perineal laceration repaired with 3-0 Monocryl and 3-0 Vicryl in usual fashion. Cervix and vagina was visualized intact. Patient tolerated delivery well she will be observed 2 hours before being taken to the floor - Disposition Mom disposition: stable in PP and appropriate for discharge Time Attestation: Total time spent providing and/or coordinating discharge services: Time Spent: Less than 30 minutes Exam - Constitutional Vitals: Temp Pulse Resp BP Pulse Ox 98.0 F 54 16 98/61 98 01/24/19 08:04 01/24/19 08:04 01/24/19 08:04 01/24/19 08:04 01/24/19 03:30 General appearance IM: A&O X 3 - Respiratory Respiratory exam: Present: CTAB - Cardiovascular Cardiovascular exam IM: Present: RRR - GI/Abdominal GI/Abdominal exam IM: soft - Uterine Tone: Firm Uterus Position: At Umbilicus - Extremities Exam Extremities exam IM: Present: normal capillary refill, normal inspection - Neurological Exam Neurological exam: normal gait, oriented X3 - Psychiatric Additional comments: reports good mood
[2019-01-24 16:32] VITALS: BP 115/70
== END 2019-01-24 20:30 | disposition home or self-care (01) | DRG 807 ==
LOC: 1NENULAB 08:09 → 1NENUOBS 20:05
PROVIDERS: ADMIT Obstetrics & Gynecology; ATTEND Obstetrics & Gynecology